=== PATIENT | male | born 1960 ===

== ENCOUNTER → 2016-06-29 | Outpatient (REF) ==
[2016-06-29 16:04] LABS: THYROID STIMULATING HORMONE 4.25 uIU/mL (0.465-4.680)
[2016-06-29 17:56] LABS: PSA-TOTAL 1.43 ng/mL (0-4)
== END ==
LOC: ZLAB.WCH 13:23
PROVIDERS: Internal Medicine
DX: Z01.89 Encounter for other specified special examinations (principal)
CPT/HCPCS: G0103